=== PATIENT | female | born 1950 | race Caucasian/White ===

== ENCOUNTER 2017-10-28 09:07 | Day surgery (SDC) | payer MEDICARE, OTHER ==
[~2017-10-28 09:07] MED LIST: ATOR10; CITA20; CITA20 PO; CLOP75 PO; IRON150C PO; ISODIN10 PO; Inderal40 MG; Nitrostat0.4 MG SL; RANO500T PO; VERA180ERB
== END 2017-10-28 23:52 | disposition home or self-care (01) ==
LOC: RAD 09:07 → ORSCMMR 09:07 → ORD 09:30 → RAD 10:00 → ORSCMMR 23:52 → ORD 23:52
DX: N02.9 Recurrent and persistent hematuria with unspecified morphologic changes (principal)
CPT/HCPCS: 51600; 74455; Q9967

== ENCOUNTER → 2017-11-22 | Outpatient (CLI) | payer MEDICARE, OTHER | LOC: LAB EV 14:27 | DX: R31.21 Asymptomatic microscopic hematuria (principal) | CPT/HCPCS: 87077; 87086; 87186 ==

== ENCOUNTER → 2018-01-05 | Outpatient (CLI) | payer MEDICARE, OTHER | END | disposition home or self-care (01) | LOC: LAB EV 14:00 | DX: N39.0 Urinary tract infection, site not specified (principal) | CPT/HCPCS: 87077; 87086; 87186 ==

== ENCOUNTER → 2018-02-06 | Outpatient (CLI) | payer MEDICARE, OTHER | LOC: LAB SHORT 12:15 → LAB EV 12:15 | DX: N39.0 Urinary tract infection, site not specified (principal) | CPT/HCPCS: 87077; 87086; 87186 ==

== ENCOUNTER → 2018-03-08 | Outpatient (CLI) | payer MEDICARE, OTHER | END | disposition home or self-care (01) | LOC: PLD 08:15 → LAB SHORT 08:15 | DX: C44.729 Squamous cell carcinoma of skin of left lower limb, including hip (principal) | CPT/HCPCS: 88305 ==

== ENCOUNTER → 2018-08-28 | Outpatient (CLI) | payer MEDICARE, OTHER ==
[~2018-08-28] MED LIST changes: +ALLERGY MED PO; +ATOR10 PO; +Calan Sr180 MG PO; +Citalopram HBr40 MG PO; +GLUCOSAMINE PO; +IRON; +MULTI COMPLETE1 EACH PO; +Mucus Relief400 MG PO; +NAPR220 PO; +VITAMIN D-32000 UNIT PO
== END | disposition home or self-care (01) ==
LOC: LAB EV 13:43 → LAB SHORT 13:43
DX: N39.0 Urinary tract infection, site not specified (principal)
CPT/HCPCS: 87077; 87086; 87186

== ENCOUNTER 2018-10-12 10:39 | Day surgery (SDC) | payer MEDICARE, OTHER ==
[~2018-10-12] VITALS: Ht 160 cm; Wt 83.6 kg
[~2018-10-12 10:39] MED LIST changes: -ALLERGY MED PO; -ATOR10 PO; -Calan Sr180 MG PO; -Citalopram HBr40 MG PO; -GLUCOSAMINE PO; -IRON; -MULTI COMPLETE1 EACH PO; -Mucus Relief400 MG PO; -NAPR220 PO; -VITAMIN D-32000 UNIT PO
--- NOTE | 2018-10-12 12:25 | NUR ---
10/12/18 1225 Armando Magaña [address]ML [address] M INJ INTO OPSITE AT 1215 BY NEIMELDA. PT SITTING ON STOOL AT END OF BED LEANING ON 2 PILLOWS. PT TAKEN TO RECOVERY IN RECLINER.
--- NOTE | 2018-10-12 12:27 | NUR ---
10/12/18 1227 Betina Menendez V PT RESTING IN RECLINER, FEET ELEVATED, WARM BLANKETS IN PLACE. CALL LIGHT WITHIN REACH. VSS. PT TOLERATING PO NURISHMENTS. PTS FAMILY MEMBER IN ROOM.
[2018-10-31] MEDS ORDERED: Citalopram HBr40 MG PO (10:23)
[2018-10-31] MEDS ORDERED: Calan Sr180 MG PO (10:24)
[2018-10-31] MEDS ORDERED: NAPR220 PO (10:24)
[2018-10-31] MEDS ORDERED: MULTI COMPLETE1 EACH PO (10:25)
[2018-10-31] MEDS ORDERED: ATOR10 PO (10:25)
[2018-10-31] MEDS ORDERED: GLUCOSAMINE PO (10:26)
[2018-10-31] MEDS ORDERED: IRON (10:26)
[2018-10-31] MEDS ORDERED: ALLERGY MED PO (10:26)
[2018-10-31] MEDS ORDERED: VITAMIN D-32000 UNIT PO (10:27)
[2018-10-31] MEDS ORDERED: Mucus Relief400 MG PO (10:29)
[2018-10-31] MEDS ORDERED: Nitrostat0.4 MG SL (10:30)
== END 2018-10-12 12:55 | disposition home or self-care (01) ==
LOC: ORSCSDS 10:39
PROVIDERS: Anesthesiology
PROC: 3E0R33Z Introduction of Anti-inflammatory into Spinal Canal, Percutaneous Approach (ICD-10-PCS; principal; 2018-10-12 12:00)
PROC: B01B1ZZ Fluoroscopy of Spinal Cord using Low Osmolar Contrast (ICD-10-PCS; principal; 2018-10-12 12:00)
DX: M50.122 Cervical disc disorder at C5-C6 level with radiculopathy (principal); I10 Essential (primary) hypertension; J44.9 Chronic obstructive pulmonary disease, unspecified; F32.9 Major depressive disorder, single episode, unspecified; Z79.899 Other long term (current) drug therapy
CPT/HCPCS: J1040; J2250; J3010; J7120

== ENCOUNTER 2018-11-01 10:54 | Day surgery (SDC) | payer MEDICARE, OTHER ==
[~2018-11-01] VITALS: Ht 160 cm; Wt 82.5 kg
[~2018-11-01 10:54] MED LIST changes: +ALLERGY MED PO; +ATOR10 PO; +Calan Sr180 MG PO; +Citalopram HBr40 MG PO; +GLUCOSAMINE PO; +IRON; +MULTI COMPLETE1 EACH PO; +Mucus Relief400 MG PO; +NAPR220 PO; +VITAMIN D-32000 UNIT PO
--- NOTE | 2018-11-01 12:15 | NUR ---
11/01/18 1215 Danika Pavon [address] USED 5 ML FOR INJECTION, BY PHYSICIAN
--- NOTE | 2018-11-01 12:39 | NUR ---
11/01/18 1239 Madison Fajardo DELAYED ENTRY. DR DEVI NOTIFIED OF LOW BP'S IN SDU. OK TO DC PER DR DEVI. BANDAID ON BACK OF NECK CLEAN AND DRY. PT DENIES PAIN (0/10).
== END 2018-11-01 12:35 | disposition home or self-care (01) ==
LOC: ORSCSDS 10:54
PROVIDERS: Anesthesiology
PROC: 3E0R33Z Introduction of Anti-inflammatory into Spinal Canal, Percutaneous Approach (ICD-10-PCS; principal; 2018-11-01 12:00)
DX: M50.122 Cervical disc disorder at C5-C6 level with radiculopathy (principal); J45.909 Unspecified asthma, uncomplicated; I10 Essential (primary) hypertension; G47.33 Obstructive sleep apnea (adult) (pediatric); F32.9 Major depressive disorder, single episode, unspecified; D64.9 Anemia, unspecified; Z79.899 Other long term (current) drug therapy
CPT/HCPCS: J1040; J2250; J3010; J7040

== ENCOUNTER → 2018-12-18 | Outpatient (CLI) | payer MEDICARE, OTHER | LOC: LAB SHORT 15:11 → LAB EV 15:11 | DX: R35.0 Frequency of micturition (principal) | CPT/HCPCS: 87077; 87086; 87186 ==

== ENCOUNTER 2019-01-04 14:08 | Emergency (ER) | payer MEDICARE, OTHER ==
[~2019-01-04] VITALS: Ht 160 cm; Wt 80.3 kg
== END 2019-01-04 15:17 | disposition home or self-care (01) ==
LOC: ER 14:08
DX: R25.1 Tremor, unspecified (principal); Z88.6 Allergy status to analgesic agent; Z88.1 Allergy status to other antibiotic agents; Z88.0 Allergy status to penicillin; Z88.2 Allergy status to sulfonamides; Z79.899 Other long term (current) drug therapy
CPT/HCPCS: 99283

== ENCOUNTER 2019-03-08 09:41 | Day surgery (SDC) | payer MEDICARE, OTHER ==
[~2019-03-08] VITALS: Ht 160 cm; Wt 80.9 kg
[~2019-03-08 09:41] MED LIST changes: +FERRO-TIME325 MG PO; +GLUCOSAMINE CO1 EACH PO; +MUCUS RELIEF C400 MG PO
--- NOTE | 2019-03-08 10:30 | NUR ---
03/08/19 1030 Johana Trevizo CALL LIGHT WITHIN REACH.
--- NOTE | 2019-03-08 11:07 | NUR ---
03/08/19 1107 Arianna Mendez PT HAS A SMALL CIRCULAR WOUND ON THE DORSAL SURFACE OF THE HAND DRY
== END 2019-03-08 12:37 | disposition home or self-care (01) ==
LOC: ORSCSDS 09:41
PROVIDERS: Orthopaedic Surgery
PROC: 0LN70ZZ Release Right Hand Tendon, Open Approach (ICD-10-PCS; principal; 2019-03-08 11:00)
DX: M65.331 Trigger finger, right middle finger (principal); I10 Essential (primary) hypertension; I25.10 Atherosclerotic heart disease of native coronary artery without angina pectoris; E66.9 Obesity, unspecified; Z68.31 Body mass index [BMI] 31.0-31.9, adult; Z79.899 Other long term (current) drug therapy
CPT/HCPCS: J0690; J1100; J2250; J2405; J2704; J3010; J7120

== ENCOUNTER → 2019-08-29 | Outpatient (CLI) | payer MEDICARE, OTHER | END | disposition home or self-care (01) | LOC: LAB SHORT 13:36 → OLS 13:36 → LAB FUT 08-28 16:25 | DX: R19.4 Change in bowel habit (principal) | CPT/HCPCS: 87015; 87045; 87046; 87205; 87493; 87899 ==

== ENCOUNTER → 2020-03-03 | Outpatient (CLI) | payer MEDICARE, OTHER ==
[2020-03-03 14:27] LABS: BASOPHILS ABSOLUTE AUTO 0.04 K/mm3 (0.00-0.23); BASOPHILS PERCENT AUTO 1 % (0-2); EOSINOPHILS ABSOLUTE AUTO 0.21 K/mm3 (0.00-0.68); EOSINOPHILS PERCENT AUTO 3 % (0-6); Hematocrit 45.6 % (33.0-51.0); Hemoglobin 15.5 g/dL (11.5-16.0); IMMATURE GRAN ABSOLUTE AUTO 0.01 K/mm3 (0.00-0.10); IMMATURE GRAN PERCENT AUTO 0 % (0-1); LYMPHOCYTES ABSOLUTE AUTO 2.57 K/mm3 (0.84-5.20); LYMPHOCYTES PERCENT AUTO 38 % (21-46); MONOCYTES ABSOLUTE AUTO 0.46 K/mm3 (0.16-1.47); MONOCYTES PERCENT AUTO 7 % (4-13); Mean Corpuscular HGB 30.6 pg (26.0-34.0); Mean Corpuscular Volume 90 fL (80-100); Mean Platelet Volume 11.2 fL (9.1-12.4); NEUTROPHILS ABSOLUTE AUTO 3.41 K/mm3 (1.96-9.15); NEUTROPHILS PERCENT AUTO 51 % (41-73); Platelet Count 221 K/mm3 (150-400); RDW Coefficient Variation 13.1 % (11.7-14.2); RDW Standard Deviation 42.8 fL (35.1-46.3); Red Blood Cell Count 5.07 M/mm3 (3.80-5.20)
[2020-03-03 14:41] LABS: Anion Gap 9 mmol/L (6-16); Blood Urea Nitrogen 13 mg/dL (8-24); CO2, Blood 30 mmol/L (21-32); Calcium, Blood 9.8 mg/dL (8.5-10.1); Chloride, Blood 106 mmol/L (98-108); Glomerular Filtration Rate 55 (60-); Glucose, Blood 100 mg/dL (70-99); Potassium, Blood 4.6 mmol/L (3.5-5.5); Sodium, Blood 145 mmol/L (136-145); Troponin I <0.017 ng/mL (0.000-0.040)
== END | disposition home or self-care (01) ==
LOC: LAB EV 14:24 → LAB SHORT 14:24
PROVIDERS: Family Medicine
DX: R07.9 Chest pain, unspecified (principal)
CPT/HCPCS: 80048; 83880; 84484; 85025

== ENCOUNTER → 2020-08-08 | Outpatient (CLI) | payer MEDICARE, OTHER ==
[~2020-08-08] MED LIST changes: +B 12 PO; +Calcium 600-D1 EACH PO; +ESCI10 PO; +IRON PO; +METAMUCIL PO; +PANT40 PO; +PROBIOTIC PO; +[UNRECOGNIZED DRUG - OTHER] PO
== END ==
LOC: LAB SHORT 08:00 → LAB 08:00 → LAB FUT 08-05 17:55
DX: C90.00 Multiple myeloma not having achieved remission (principal); E85.9 Amyloidosis, unspecified
CPT/HCPCS: 81050; 86335

== ENCOUNTER 2020-09-24 07:32 | Day surgery (SDC) | payer MEDICARE, OTHER ==
[~2020-09-24] VITALS: Ht 160 cm; Wt 76.7 kg
[~2020-09-24 07:32] MED LIST changes: +ATORVASTATIN CA40 M1 PO; +Acidophilus1 EAC1 PO; +CALCIUM CARBON650 MG PO; +FERROUS SULFAT325 M3 PO; +MULTIPLE VITAM1 EACH PO; +Metoprolol Succ25 MG PO; +PANT20 PO; +VITAMIN B-122000 MCG PO
[2020-09-24] MEDS ORDERED: Dicyclomine HCl10 MG (08:08)
[2020-09-24] MEDS ORDERED: DOXY100 (08:09)
[2020-09-24] MEDS ORDERED: ALBU3IS (08:10)
== END 2020-09-24 09:50 | disposition home or self-care (01) ==
LOC: ORSCSDS 07:32
PROVIDERS: Surgery
PROC: 0JB80ZX Excision of Abdomen Subcutaneous Tissue and Fascia, Open Approach, Diagnostic (ICD-10-PCS; principal; 2020-09-24 08:45)
DX: E85.4 Organ-limited amyloidosis (principal); J45.909 Unspecified asthma, uncomplicated; I25.10 Atherosclerotic heart disease of native coronary artery without angina pectoris; I10 Essential (primary) hypertension; E11.9 Type 2 diabetes mellitus without complications; G47.33 Obstructive sleep apnea (adult) (pediatric); I25.2 Old myocardial infarction; Z79.899 Other long term (current) drug therapy
CPT/HCPCS: 82947; 88304; 88313; J0690; J2250; J2405; J2704; J3010; J7120

== ENCOUNTER → 2021-01-13 | Outpatient (CLI) | payer MEDICARE, OTHER ==
[~2021-01-13] MED LIST changes: +ALBU3IS; +DOXY100; +Dicyclomine HCl10 MG
[2021-01-13 10:05] LABS: Alanine Aminotransfer (ALT/SGP 157 U/L (12-78); Albumin, Blood 2.6 g/dL (3.4-5.0); Albumin/Globulin Ratio 0.7 (0.8-1.8); Alk Phos 152 U/L (50-136); Anion Gap 8 mmol/L (6-16); Aspartate Aminotrans (AST/SGOT 58 U/L (12-37); Bilirubin, Total 0.6 mg/dL (0.1-1.0); Blood Urea Nitrogen 10 mg/dL (8-24); Bun/Creatinine Ratio 11.5 (12.0-20.0); CO2, Blood 29 mmol/L (21-32); Calcium, Blood 8.7 mg/dL (8.5-10.1); Chloride, Blood 103 mmol/L (98-108); Creatinine, Blood 0.87 mg/dL (0.40-1.00); Globulin, Blood 3.8 g/dL (2.2-4.0); Glomerular Filtration Rate >60 (60-); Glucose, Blood 155 mg/dL (70-99); Potassium, Blood 3.6 mmol/L (3.5-5.5); Sodium, Blood 140 mmol/L (136-145); Total Protein, Blood 6.4 g/dL (6.4-8.2)
== END | disposition home or self-care (01) ==
LOC: LAB SHORT 09:15 → LAB 09:15
PROVIDERS: Registered Nurse Oncology
DX: E87.6 Hypokalemia (principal); E85.9 Amyloidosis, unspecified
CPT/HCPCS: 80053

== ENCOUNTER → 2021-12-29 | Outpatient (CLI) | payer MEDICARE, OTHER ==
[2021-12-29 12:30] LABS: BASOPHILS ABSOLUTE AUTO 0.02 K/mm3 (0.00-0.23); BASOPHILS PERCENT AUTO 0 % (0-2); EOSINOPHILS PERCENT AUTO 1 % (0-6); Hematocrit 41.6 % (33.0-51.0); Hemoglobin 13.9 g/dL (11.5-16.0); IMMATURE GRAN ABSOLUTE AUTO 0.02 K/mm3 (0.00-0.10); IMMATURE GRAN PERCENT AUTO 0 % (0-1); LYMPHOCYTES ABSOLUTE AUTO 1.27 K/mm3 (0.84-5.20); LYMPHOCYTES PERCENT AUTO 17 % (21-46); MONOCYTES ABSOLUTE AUTO 0.59 K/mm3 (0.16-1.47); MONOCYTES PERCENT AUTO 8 % (4-13); Mean Corpuscular HGB 30.3 pg (26.0-34.0); Mean Corpuscular HGB Conc 33.4 g/dL (31.5-36.5); Mean Corpuscular Volume 91 fL (80-100); Mean Platelet Volume 10.7 fL (9.1-12.4); NEUTROPHILS ABSOLUTE AUTO 5.46 K/mm3 (1.96-9.15); NEUTROPHILS PERCENT AUTO 73 % (41-73); Platelet Count 192 K/mm3 (150-400); RDW Coefficient Variation 13.3 % (11.7-14.2); RDW Standard Deviation 43.4 fL (35.1-46.3); Red Blood Cell Count 4.58 M/mm3 (3.80-5.20); White Blood Cell Count 7.46 K/mm3 (4.00-11.30)
[2021-12-29 13:37] LABS: Albumin, Blood 3.9 g/dL (3.4-5.0); Albumin/Globulin Ratio 1.3 (0.8-1.8); Bilirubin, Total 0.5 mg/dL (0.1-1.0); Bun/Creatinine Ratio 13.6 (12.0-20.0); Calcium, Blood 9.7 mg/dL (8.5-10.1); Creatinine, Blood 0.96 mg/dL (0.40-1.00); Globulin, Blood 3.1 g/dL (2.2-4.0); Potassium, Blood 4.1 mmol/L (3.5-5.5)
== END | disposition home or self-care (01) ==
LOC: LAB SHORT 12:24 → PLD 12:24
PROVIDERS: Family Medicine
DX: R06.00 Dyspnea, unspecified (principal)
CPT/HCPCS: 80053; 83880; 84484; 85025; 85379

== ENCOUNTER → 2022-03-14 | Outpatient (CLI) | payer MEDICARE, OTHER ==
[2022-03-14 11:39] LABS: BASOPHILS ABSOLUTE AUTO 0.03 K/mm3 (0.00-0.23); BASOPHILS PERCENT AUTO 1 % (0-2); EOSINOPHILS ABSOLUTE AUTO 0.18 K/mm3 (0.00-0.68); EOSINOPHILS PERCENT AUTO 3 % (0-6); Hematocrit 42.2 % (33.0-51.0); IMMATURE GRAN ABSOLUTE AUTO 0.01 K/mm3 (0.00-0.10); IMMATURE GRAN PERCENT AUTO 0 % (0-1); LYMPHOCYTES ABSOLUTE AUTO 1.51 K/mm3 (0.84-5.20); LYMPHOCYTES PERCENT AUTO 24 % (21-46); MONOCYTES ABSOLUTE AUTO 0.77 K/mm3 (0.16-1.47); MONOCYTES PERCENT AUTO 12 % (4-13); Mean Corpuscular HGB 30.2 pg (26.0-34.0); Mean Corpuscular HGB Conc 33.2 g/dL (31.5-36.5); Mean Corpuscular Volume 91 fL (80-100); Mean Platelet Volume 10.5 fL (9.1-12.4); NEUTROPHILS ABSOLUTE AUTO 3.84 K/mm3 (1.96-9.15); NEUTROPHILS PERCENT AUTO 61 % (41-73); Platelet Count 172 K/mm3 (150-400); RDW Coefficient Variation 13.4 % (11.7-14.2); RDW Standard Deviation 44.3 fL (35.1-46.3); Red Blood Cell Count 4.64 M/mm3 (3.80-5.20); White Blood Cell Count 6.34 K/mm3 (4.00-11.30)
[2022-03-14 11:45] LABS: Bun/Creatinine Ratio 14.1 (12.0-20.0); Calcium, Blood 9.2 mg/dL (8.5-10.1); Creatinine, Blood 0.99 mg/dL (0.40-1.00); Potassium, Blood 4.1 mmol/L (3.5-5.5)
== END | disposition home or self-care (01) ==
LOC: LAB SHORT 11:35
PROVIDERS: Physician Assistant
DX: R06.00 Dyspnea, unspecified (principal)
CPT/HCPCS: 80048; 85025; 85379

== ENCOUNTER 2022-10-05 11:59 | Day surgery (SDC) | payer MEDICARE, OTHER ==
[~2022-10-05] VITALS: Ht 160 cm; Wt 73.5 kg
[~2022-10-05 11:59] MED LIST changes: +GABA100 PO; +GABA300 PO; +TORS10 PO; +VALA500 PO
== END 2022-10-05 14:50 | disposition home or self-care (01) ==
LOC: ORSCSDS 11:59
PROVIDERS: Surgery
PROC: 0DJD8ZZ Inspection of Lower Intestinal Tract, Via Natural or Artificial Opening Endoscopic (ICD-10-PCS; principal; 2022-10-05 13:45)
DX: Z12.11 Encounter for screening for malignant neoplasm of colon (principal); K57.30 Diverticulosis of large intestine without perforation or abscess without bleeding; G47.33 Obstructive sleep apnea (adult) (pediatric); I10 Essential (primary) hypertension; E11.9 Type 2 diabetes mellitus without complications; I25.10 Atherosclerotic heart disease of native coronary artery without angina pectoris; Z79.899 Other long term (current) drug therapy
CPT/HCPCS: 82947; J2704; J7120

== ENCOUNTER → 2025-05-16 | Outpatient (CLI) | payer MEDICARE, OTHER ==
[2025-05-16 16:16] LABS: BASOPHILS ABSOLUTE AUTO 0.05 K/mm3 (0.00-0.23); BASOPHILS PERCENT AUTO 1 % (0-2); EOSINOPHILS ABSOLUTE AUTO 0.17 K/mm3 (0.00-0.68); EOSINOPHILS PERCENT AUTO 4 % (0-6); Hematocrit 44.9 % (33.0-51.0); Hemoglobin 15.2 g/dL (11.5-16.0); IMMATURE GRAN ABSOLUTE AUTO 0.01 K/mm3 (0.00-0.10); IMMATURE GRAN PERCENT AUTO 0 % (0-1); LYMPHOCYTES ABSOLUTE AUTO 1.72 K/mm3 (0.84-5.20); LYMPHOCYTES PERCENT AUTO 39 % (21-46); MONOCYTES ABSOLUTE AUTO 0.47 K/mm3 (0.16-1.47); MONOCYTES PERCENT AUTO 11 % (4-13); Mean Corpuscular HGB Conc 33.9 g/dL (31.5-36.5); Mean Corpuscular Volume 88 fL (80-100); NEUTROPHILS ABSOLUTE AUTO 2.04 K/mm3 (1.96-9.15); NEUTROPHILS PERCENT AUTO 46 % (41-73); NRBC ABSOLUTE 0.00 K/mm3 (0.00-0.02); NRBC Auto 0.0 /100 WBC (0.0-0.2); Platelet Count 215 K/mm3 (150-400); RDW Coefficient Variation 13.1 % (11.7-14.2); RDW Standard Deviation 42.1 fL (35.1-46.3)
[2025-05-16 16:28] LABS: Alanine Aminotransfer (ALT/SGP 26.0 U/L (12-78); Albumin, Blood 4.0 g/dL (3.4-5.0); Albumin/Globulin Ratio 1.1 (0.8-1.8); Anion Gap 10.0 mmol/L (3-11); Aspartate Aminotrans (AST/SGOT 24.0 U/L (12-37); Bilirubin, Total 0.5 mg/dL (0.1-1.0); Blood Urea Nitrogen 17.0 mg/dL (8-24); CO2, Blood 33.0 mmol/L (21-32); Calcium, Blood 10.4 mg/dL (8.5-10.1); Chloride, Blood 105.0 mmol/L (98-108); Creatinine, Blood 0.97 mg/dL (0.40-1.00); Globulin, Blood 3.6 g/dL (2.2-4.0); Glucose, Blood 135.0 mg/dL (70-99); Potassium, Blood 3.9 mmol/L (3.5-5.5); Sodium, Blood 144.0 mmol/L (136-145); Total Protein, Blood 7.6 g/dL (6.4-8.2)
== END | disposition home or self-care (01) ==
LOC: LAB SHORT 16:12 → LAB 16:12
PROVIDERS: Emergency Medicine
DX: R00.0 Tachycardia, unspecified (principal)
CPT/HCPCS: 80053; 83880; 84484; 85025

== ENCOUNTER 2025-06-01 08:59 | Emergency (ER) | payer MEDICARE, OTHER ==
[~2025-06-01] VITALS: Ht 160 cm; Wt 69.4 kg
[2025-06-01] MEDS ORDERED: ELIQUIS5 M3 PO (10:08)
[2025-06-01] MEDS ORDERED: Ventolin5 MG/1 ML INH (10:09)
[2025-06-01] MEDS ORDERED: Acetaminophen650 M1 PO (10:09)
[2025-06-01] MEDS ORDERED: JARDIANCE10 MG PO (10:11)
[2025-06-01] MEDS ORDERED: DESVENLAFAXINE50 M3 PO (10:12)
[2025-06-01] MEDS ORDERED: FLUTICASONE-SA1 EAC8 INH (10:15)
[2025-06-01 10:21] LABS: BASOPHILS ABSOLUTE AUTO 0.05 K/mm3 (0.00-0.23); BASOPHILS PERCENT AUTO 1 % (0-2); EOSINOPHILS ABSOLUTE AUTO 0.13 K/mm3 (0.00-0.68); EOSINOPHILS PERCENT AUTO 2 % (0-6); Hematocrit 47.5 % (33.0-51.0); Hemoglobin 15.4 g/dL (11.5-16.0); IMMATURE GRAN ABSOLUTE AUTO 0.03 K/mm3 (0.00-0.10); IMMATURE GRAN PERCENT AUTO 0 % (0-1); LYMPHOCYTES ABSOLUTE AUTO 2.10 K/mm3 (0.84-5.20); LYMPHOCYTES PERCENT AUTO 27 % (21-46); MONOCYTES ABSOLUTE AUTO 0.73 K/mm3 (0.16-1.47); MONOCYTES PERCENT AUTO 9 % (4-13); Mean Corpuscular HGB Conc 32.4 g/dL (31.5-36.5); Mean Corpuscular Volume 88 fL (80-100); NEUTROPHILS ABSOLUTE AUTO 4.83 K/mm3 (1.96-9.15); NEUTROPHILS PERCENT AUTO 61 % (41-73); NRBC ABSOLUTE 0.00 K/mm3 (0.00-0.02); NRBC Auto 0.0 /100 WBC (0.0-0.2); Platelet Count 323 K/mm3 (150-400); RDW Coefficient Variation 13.1 % (11.7-14.2); RDW Standard Deviation 41.6 fL (35.1-46.3)
[2025-06-01 10:30] LABS: Anion Gap 8.0 mmol/L (3-11); Blood Urea Nitrogen 22.0 mg/dL (8-24); CO2, Blood 31.0 mmol/L (21-32); Calcium, Blood 10.0 mg/dL (8.5-10.1); Chloride, Blood 104.0 mmol/L (98-108); Creatinine, Blood 0.93 mg/dL (0.40-1.00); Glucose, Blood 122.0 mg/dL (70-99); Potassium, Blood 4.0 mmol/L (3.5-5.5); Sodium, Blood 139.0 mmol/L (136-145)
[2025-06-01 14:24] VITALS: BP 121/74
== END 2025-06-01 14:25 | disposition home or self-care (01) ==
LOC: ER 08:59
DX: I48.92 Unspecified atrial flutter (principal); I11.0 Hypertensive heart disease with heart failure; I50.20 Unspecified systolic (congestive) heart failure; E85.4 Organ-limited amyloidosis; I43 Cardiomyopathy in diseases classified elsewhere; K52.9 Noninfective gastroenteritis and colitis, unspecified; E78.5 Hyperlipidemia, unspecified; E11.42 Type 2 diabetes mellitus with diabetic polyneuropathy; J44.9 Chronic obstructive pulmonary disease, unspecified; Z88.8 Allergy status to other drugs, medicaments and biological substances; Z88.5 Allergy status to narcotic agent; Z88.2 Allergy status to sulfonamides; Z88.1 Allergy status to other antibiotic agents; Z79.01 Long term (current) use of anticoagulants; Z79.899 Other long term (current) drug therapy; Z79.84 Long term (current) use of oral hypoglycemic drugs
CPT/HCPCS: 71046; 80048; 84484; 85025; 93005; 93010; 99285-25

== ENCOUNTER 2025-06-24 06:01 | Day surgery (SDC) | payer MEDICARE, OTHER ==
[2025-06-24] VITALS (15 sets, daily range): BP systolic 92–125; BP diastolic 65–103
[~2025-06-24] VITALS: Ht 160 cm; Wt 68.0 kg
[~2025-06-24 06:01] MED LIST changes: +Acetaminophen650 M1 PO; +DESVENLAFAXINE50 M3 PO; +ELIQUIS5 M3 PO; +FLUTICASONE-SA1 EAC8 INH; +JARDIANCE10 MG PO; +Ventolin5 MG/1 ML INH
[2025-06-24] MEDS ORDERED: VITAMIN B-122000 MC1 PO (06:22)
[2025-06-24] MEDS ORDERED: FERSU300 PO (06:22)
[2025-06-24] MEDS ORDERED: GABA300 PO (06:22)
[2025-06-24] MEDS ORDERED: OXAYDO5 M1 PO (06:23)
[2025-06-24] MEDS ORDERED: POTA10T PO (06:24)
[2025-06-24] MEDS ORDERED: NS 1,000 ML IV ONE (06:36)
--- NOTE | 2025-06-24 07:09 | NUR ---
ASSUMED CARE FROM ANESTHESIA. PT AWAKE AND VERBALIZING WELL. SR 80-90 BPM POST CARDIOVERSION.
--- NOTE | 2025-06-24 08:00 | NUR ---
PT VERBALIZED UNDERSTANDING OF WRITTEN AND VERBAL D/C INST. IV REMOVED. SR 80-90 BPM ON D/C. PT TAKEN OUT OF THE [facility]RT [facility]ENTER VIA W/C. AMB TO W/C /S DIFFICULTY.
== END 2025-06-24 23:00 | disposition home or self-care (01) ==
LOC: MHTC 06:01 → ORSCMMR 06:02 → MHTC 23:00
DX: I48.91 Unspecified atrial fibrillation (principal); I48.3 Typical atrial flutter; I11.0 Hypertensive heart disease with heart failure; I50.31 Acute diastolic (congestive) heart failure; C90.00 Multiple myeloma not having achieved remission; D75.A Glucose-6-phosphate dehydrogenase (G6PD) deficiency without anemia; E85.4 Organ-limited amyloidosis; I43 Cardiomyopathy in diseases classified elsewhere; E11.9 Type 2 diabetes mellitus without complications; G47.33 Obstructive sleep apnea (adult) (pediatric); Z79.899 Other long term (current) drug therapy; Z88.1 Allergy status to other antibiotic agents; Z88.5 Allergy status to narcotic agent; Z88.8 Allergy status to other drugs, medicaments and biological substances; Z90.49 Acquired absence of other specified parts of digestive tract
CPT/HCPCS: 92960; 93005; 93010; J7030